=== PATIENT | female | born 1995 | race Caucasian/White ===

== ENCOUNTER 2019-07-01 21:22 | Emergency (ER) | payer BC ==
[2019-07-01] MEDS: LACTATED RINGER'S 1,000 ML IV (23:01)
[2019-07-01] MEDS: ONDANSETRON 4 MG INJ IV (23:02)
[2019-07-01] MEDS: IBUPROFEN 600 MG TAB PO (23:02)
== END 2019-07-02 00:50 | disposition home or self-care (01) ==
LOC: E/R 07-02 00:50
DX: R50.9 Fever, unspecified (principal); R10.13 Epigastric pain; R11.2 Nausea with vomiting, unspecified
CPT/HCPCS: 36415; 74176; 80053; 81001; 83690; 85025; 87040-91; 87086; 96374; 99285-25